=== PATIENT | female | born 1995 | race Caucasian/White ===

== ENCOUNTER 2017-10-13 14:54 | Emergency (ER) | payer MEDICAID ==
[2017-10-13 15:07] VITALS: BMI 36.2
[2017-10-13 16:18] LABS: SQUAMOUS EPITHIAL 3 /hpf (0-5); URINE BILIRUBIN NEGATIVE (NEGATIVE); URINE BLOOD NEGATIVE (NEGATIVE); URINE CLARITY Clear (Clear); URINE COLOR Yellow (YELLOW); URINE GLUCOSE (UA) NORMAL (Normal); URINE LEUKOCYTE ESTERASE NEG Leu/uL (Negative); URINE PROTEIN NEGATIVE (NEGATIVE); URINE UROBILINOGEN NORMAL mg/dL (0.2-1.0)
[2017-10-13] MEDS ORDERED: Dextrose 5%/Lactated Ringer's 1,000 ML IV SCH (16:30)
[2017-10-13] MEDS ORDERED: Dextrose 5%/0.9% NS 1,000 ML IV ONE (16:37)
[2017-10-13] MEDS ORDERED: Dextrose 5%/Lactated Ringer's 1,000 ML IV ONE (16:45)
[2017-10-13 21:44] VITALS: BP 114/64; PULSE 125; RESP 18; TEMP 99; O2SAT 99
== END 2017-10-13 17:43 | disposition home or self-care (01) ==
LOC: C.EROB 14:54
DX: O26.892 Other specified pregnancy related conditions, second trimester (principal); M54.5 Low back pain; Z3A.21 21 weeks gestation of pregnancy
CPT/HCPCS: 81001; 87804; 99282; J7042; J7120

== ENCOUNTER 2018-02-23 06:30 | Inpatient (IN) | payer MEDICAID, OTHER ==
[2018-02-23] MEDS ORDERED: Lactated Ringer's 1,000 ML IV ONE (08:09)
[2018-02-23] MEDS ORDERED: Penicillin G 5 Million Unit Vial IVPB ONE ×2 (08:09→08:59)
[2018-02-23] MEDS ORDERED: Lactated Ringer's 1,000 ML IV SCH (08:15)
[2018-02-23] MEDS ORDERED: Oxytocin 30 UNIT 30 UNITS/500 ML BAG IV ONE ×2 (08:37→09:08)
[2018-02-23 08:48] LABS: EOS # 0.1 K/uL (0.0-0.7); LYMPH # 2.2 K/uL (1.0-4.3); MEAN PLATELET VOLUME 10.1 fL (7.2-11.7); MONO # 0.9 K/uL (0.0-0.8)
[2018-02-23 08:57] LABS: BASO % 0.4 % (0.0-2.0); LYMPH % 21.4 % (20.0-40.0); MEAN CORPUSCULAR HEMOGLOBIN 29.2 pg (27.0-31.0); MEAN CORPUSCULAR HGB CONC 33.9 g/dL (33.0-37.0); MONO % 8.5 % (0.0-10.0); NEUT % 68.7 % (50.0-75.0); RBC 3.95 Mil/uL (3.80-5.20); RED CELL DISTRIBUTION WIDTH 14.4 % (11.5-14.5); WHITE BLOOD COUNT 10.2 K/uL (4.8-10.8)
[2018-02-23 09:00] LABS: HEMOGLOBIN 11.5 g/dL (11.0-16.0); MEAN CELL VOLUME 86.1 fL (81.0-99.0)
[2018-02-23 09:16] LABS: SQUAMOUS EPITHIAL 7 /hpf (0-5); URINE BACTERIA OCC (<OCC); URINE BILIRUBIN NEGATIVE (NEGATIVE); URINE BLOOD NEGATIVE (NEGATIVE); URINE CLARITY Hazy (Clear); URINE COLOR Yellow (YELLOW); URINE GLUCOSE (UA) NORMAL (Normal); URINE LEUKOCYTE ESTERASE 3+ Leu/uL (Negative); URINE PROTEIN NEGATIVE (NEGATIVE); URINE UROBILINOGEN NORMAL mg/dL (0.2-1.0)
--- NOTE | 2018-02-23 09:44 | OBHP ---
Datetime: 02/23/2018 08:54 IP Adm Impression: Postterm, intrauterine IP Admit Plan: Admit to unit; Initiate labor protocol; Initiate labor induction protocol Admit Comment, IP Provider: cc: "induction of labor" HPI: Patient is a 22 y/o who is currently at a gestational age of 40 weeks and 5 days. She is p resenting for scheduled induction of labor. Patient's LMP was 04/21/17. Patient endorses moveme nt and contractions every 10 minutes. She denies vaginal bleed and LOF. Patient found out about her p regnancy at 6-7 weeks gestation and has been taking vitamins since then. OBHx: previously had 1 miscarriage in 2015. Previous termination via D_C at 2013. As per patient, last ultrasound was on 01/27. During this , patient is +GBS. GynHx: menarche at age 11. Periods occur every 28 days and last 3 days in duration. Previous histo ry of Chlamydia. Denies HIV, hepatitis, gonorrhea, syphilis, herpes infections. No history of fibroid s or cysts. Last pap smear was at 32 weeks gestation and was within normal limits. PMHx: Chlamydia (previously + but as of 01/30/18, she is negative for Chlamydia) PSHx: D_C (2013) SocialHx: denies alcohol use during ; previous social drinker. No tobacco use. No recreat ional drug use. Monogamous. FamilyHx: mother is 39 y/o with no health issues. Father is 41 y/o with no health issues. Meds: vitamins only. Allergies: NKDA. ROS: Negative for headache, lightheadedness, dizziness, chest pain, shortness of breath, n/v/d, lower e xtremity pain and swelling. Assessment: Patient is a 22 y/o who is currently at a gestational age of 40 weeks and 5 days. She is p resenting for scheduled induction of labor. Uneventful Course except for + Chlamydia and treated with RAYA Negative Plan: 1. Admit 2. NPO 3. NST Reactive/Continuous EFM 4. Anesthesia cosulted for possible epidural 5. Penicillin G for +GBS 6. Anticipate 7. Blood Type A+ Amilcar Pal, DO PGY1 H_P for Dr. Kenyon Pelvic Type - PN: Adequate Extremities - PN: Normal Abdomen - PN: Normal Back - PN: Normal Breast - PN: Normal Lungs - PN: Normal Heart - PN: Normal Thyroid - PN: Normal Neurologic - PN: Normal HEENT - PN: Normal General - PN: Normal FHR - Baseline A Provider: 140 Contraction Comments Provider: Yes Comments, ACOG Physical Exam: General: NAD. AAOx3. Cardio: RRR, normal s1/s2. No murmurs. Lungs: CTA bilaterally. No w/r/r Abdomen: Gravid abdomen. Fundus is high, several fingerbreadths above the umbilicus. Non-tender ab domen. No rebound tenderness or guarding. : 2 cm dilation. 80% effacement. -2 station. Ext: no pitting edema. No calf tenderness or lower extremity swelling. Negative Paola sign. Gestation - Est Wks by US: 40.5 IP Hx Assessment: The History has been Reviewed and is Current EGA AdmitDate IP: 40.5 Vital Signs Provider: Reviewed; Within Normal Limits IP Chief Complaint: Scheduled induction of labor NICHD Variability Prov Fetus A: Moderate 6-25bpm NICHD Accel Fetus A IP Provider: Minimal FHR Category Provider Fetus A: Category I NICHD Decel Fetus A IP Provider: Variable Dilatation, Provider: 2 Effacement, Provider: 80 Station, Provider: -2 Genitourinary Exam: Normal DTRs - PN: Normal Datetime: 10/13/2017 15:40 IP Chief Complaint Other: Low back pain; lower abdominal pain; sore throat Vital Signs Provider Details: Maternal tachycardia noted
--- NOTE | 2018-02-23 10:02 | OBADHP ---
Datetime: 02/23/2018 08:54 Admit Comment, IP Provider: cc: "induction of labor" HPI: Patient is a 22 y/o who is currently at a gestational age of 40 weeks and 5 days. She is p resenting for scheduled induction of labor. Patient's LMP was 04/21/17. Patient endorses moveme nt and contractions every 10 minutes. She denies vaginal bleed and LOF. Patient found out about her p regnancy at 6-7 weeks gestation and has been taking vitamins since then. OBHx: previously had 1 miscarriage in 2015. Previous termination via D_C at 2013. As per patient, last ultrasound was on 01/27. During this , patient is +GBS. GynHx: menarche at age 11. Periods occur every 28 days and last 3 days in duration. Previous histo ry of Chlamydia. Denies HIV, hepatitis, gonorrhea, syphilis, herpes infections. No history of fibroid s or cysts. Last pap smear was at 32 weeks gestation and was within normal limits. PMHx: Chlamydia (previously + but as of 01/30/18, she is negative for Chlamydia) PSHx: D_C (2013) SocialHx: denies alcohol use during ; previous social drinker. No tobacco use. No recreat ional drug use. Monogamous. FamilyHx: mother is 39 y/o with no health issues. Father is 41 y/o with no health issues. Meds: vitamins only. Allergies: NKDA. ROS: Negative for headache, lightheadedness, dizziness, chest pain, shortness of breath, n/v/d, lower e xtremity pain and swelling. Assessment: Patient is a 22 y/o who is currently at a gestational age of 40 weeks and 5 days. She is p resenting for scheduled induction of labor. Uneventful Course except for + Chlamydia and treated with RAYA Negative Plan: 1. Admit 2. NPO 3. NST Reactive/Continuous EFM 4. Anesthesia cosulted for possible epidural 5. Penicillin G for +GBS 6. Anticipate 7. Blood Type A+ Amilcar Pal, DO PGY1 H_P for Dr. Kenyon Pelvic Type - PN: Adequate Extremities - PN: Normal Abdomen - PN: Normal Back - PN: Normal Breast - PN: Normal Lungs - PN: Normal Heart - PN: Normal Thyroid - PN: Normal Neurologic - PN: Normal HEENT - PN: Normal General - PN: Normal FHR - Baseline A Provider: 140 Contraction Comments Provider: Yes Comments, ACOG Physical Exam: General: NAD. AAOx3. Cardio: RRR, normal s1/s2. No murmurs. Lungs: CTA bilaterally. No w/r/r Abdomen: Gravid abdomen. Fundus is high, several fingerbreadths above the umbilicus. Non-tender ab domen. No rebound tenderness or guarding. : 2 cm dilation. 80% effacement. -2 station. Ext: no pitting edema. No calf tenderness or lower extremity swelling. Negative Paola sign. Gestation - Est Wks by US: 40.5 IP Hx Assessment: The History has been Reviewed and is Current Vital Signs Provider: Reviewed; Within Normal Limits IP Chief Complaint: Scheduled induction of labor NICHD Variability Prov Fetus A: Moderate 6-25bpm NICHD Accel Fetus A IP Provider: Minimal FHR Category Provider Fetus A: Category I NICHD Decel Fetus A IP Provider: Variable Dilatation, Provider: 2 Effacement, Provider: 80 Station, Provider: -2 Genitourinary Exam: Normal DTRs - PN: Normal EGA AdmitDate IP: 40.5 IP Adm Impression: Postterm, intrauterine ; Intact Membranes IP Admit Plan: Admit to unit; Initiate labor protocol; Initiate labor induction protocol Datetime: 10/13/2017 15:40 IP Chief Complaint Other: Low back pain; lower abdominal pain; sore throat Vital Signs Provider Details: Maternal tachycardia noted
[2018-02-23] MEDS ORDERED: Bupivacaine HCl/FentaNYL Cit 100 ML EPI ONE (10:03)
[2018-02-23 10:28] LABS: ALB/GLOB RATIO 1.1 (1.0-2.1); ALBUMIN 3.4 g/dL (3.5-5.0); ALT/SGPT 22 U/L (9-52); AST/SGOT 18 U/L (14-36); BLOOD UREA NITROGEN 9 mg/dL (7-17); GFR NON-AFRICAN AMERICAN > 60
--- NOTE | 2018-02-23 11:59 | OBPN ---
Datetime: 02/23/2018 11:39 IP Progress Impression: Normal progression of labor IP Informed Consent Obtain: Vaginal Delivery IP Procedures: Artificial ROM; Intrauterine Pressure Catheter; Scalp Electrode; Sterile Vag Ex am IP Progress Plan: Continue present management; Induction; Antibiotic therapy Membranes, Provider: Ruptured Amniotic Fluid Color, Provider: Bloody Contraction Comments Provider: Irregular FHR - Baseline A Provider: 150 Gestation - Est Wks by US: 40.5 Presentation-Admit: Vertex IP Progress Note Comment: IOL in progress Pitocin at 4 mU/min and contractions irregular and mild SVE-4/90/-1 AROM with scanty bloody fluid IUPC and ISL place with ease UC's Q 3 minutes and up to 30-[address] and working well Anticipate a vaginal delivery NICHD Accel Fetus A IP Provider: 10X10 NICHD Variability Prov Fetus A: Moderate 6-25bpm Dilatation, Provider: 3-4 Effacement, Provider: 90 Station, Provider: -1 NICHD Decel Fetus A IP Provider: None; Variable Datetime: 02/23/2018 08:54 Pool Provider: Negative Vital Signs Provider: Reviewed; Within Normal Limits FHR Category Provider Fetus A: Category I Datetime: 10/13/2017 15:40 Vital Signs Provider Details: Maternal tachycardia noted
--- NOTE | 2018-02-23 13:53 | OBPN ---
Datetime: 02/23/2018 13:29 IP Progress Impression: Normal progression of labor IP Informed Consent Obtain: Vaginal Delivery IP Procedures: Sterile Vag Exam IP Progress Plan: Continue present management; Induction; Antibiotic therapy Membranes, Provider: Ruptured Contraction Comments Provider: 2-3 FHR - Baseline A Provider: 140 Gestation - Est Wks by US: 40.5 Presentation-Admit: Vertex IP Progress Note Comment: Pt feeling pressure and + earlies noted on strip UC's q 2-3 mins and up to 50 mmHg SVE 8/100/-1 and + caput Pitocin at 8 mU/min Epidural working well Hope for a vaginal delivery NICHD Accel Fetus A IP Provider: 10X10 NICHD Variability Prov Fetus A: Moderate 6-25bpm Dilatation, Provider: 8 Effacement, Provider: 100 Station, Provider: -1 NICHD Decel Fetus A IP Provider: Early
[2018-02-23] MEDS ORDERED: Benzocaine/Menthol 20%-0.5% Topical Spray (60 ml) TOP PRN (14:47)
[2018-02-23] MEDS ORDERED: Oxycodone/Acetaminophen 5/325 mg Tab PO PRN ×2 (14:47)
--- NOTE | 2018-02-23 16:04 | OBDS ---
DELIVERY PERSONNEL Delivery Doctor: Monse Kenyon MD Vp Transportation: Cristian Petersen RN Anesthesiologist: Hrasha MATERNAL INFORMATION Delivery Anesthesia: Epidural Medications in Delivery: pitocin 20 Estimated Blood Loss (ml): 200 Placenta Cultured: No Maternal Complications: None Provider Comments: of a viable female from EMILIANO position and over an intact perineum. Apg ars 9_9. BW 7lbs, 15 oz EBL 200 mls and Pitocin infusion given Epidural worked wellLacerations repaired without complications Pt and both tolerated the procedure well and remained in S_S condition LABOR SUMMARY EDC: 02/18/2018 00:00 No. Babies in Womb: 1 LABOR INFORMATION Reason for Induction: Postterm Onset of Labor: 02/23/2018 10:00 Complete Dilatation: 02/23/2018 14:22 Group B Beta Strep: Positive Steroids Given: None Reason Steroids Not Administered: Not Applicable MEMBRANES Membranes Rupture Method: Artificial Rupture of Membranes: 02/23/2018 11:05 Length of Rupture (hrs): 3.42 Amniotic Fluid Color: Clear Amniotic Fluid Amount: Moderate Amniotic Fluid Odor: Normal STAGES OF LABOR Stage 1 hrs: 4 Stage 1 min: 22 Stage 2 hrs: 0 Stage 2 min: 8 Stage 3 hrs: 0 Stage 3 min: 8 Total Time in Labor hrs: 4 Total Time in Labor min: 38 VAGINAL DELIVERY Episiotomy: None Laceration Extension: N/A Laceration Type: Periurethral Laceration Repair: Yes Laceration Repair Note: 3-0 chromic suture utilized to repair bilateral periurethrals and done witho ut complications Initial Vag Sponge Count: 10 Final Vag Sponge Count: 10 Initial Vag Sharps Count: 2 Final Vag Sharps Count: 2 Sponge Count Correct: Yes Sharps Count Correct: Yes BABY A INFORMATION Delivery Date/Time: 02/23/2018 14:30 Method of Delivery: Vaginal Born in Route : No : N/A Forceps: N/A Vacuum Extraction: N/A SHOULDER DYSTOCIA BABY A Infant Delivery Date/Time: 02/23/2018 14:30 PRESENTATION/POSITION BABY A Presentation: Cephalic Cephalic Presentation: Vertex Breech Presentation: N/A PLACENTA INFORMATION BABY A Placenta Delivery Time : 02/23/2018 14:38 Placenta Method of Delivery: Spontaneous Placenta Status: Delivered SCORES BABY A Heart Rate 1 min: >100 bpm Resp Effort 1 min: Good Cry Reflex Irritability 1 min: Cough or Sneeze or Pulls Away Muscle Tone 1 min: Active Motion Color 1 min: Body [place], Extremities Blue Resuscitation Effort 1 min: Tactile Stimulation SCORE 1 MIN: 9 Heart Rate 5 min: >100 bpm Resp Effort 5 min: Good Cry Reflex Irritability 5 min: Cough or Sneeze or Pulls Away Muscle Tone 5 min: Active Motion Color 5 min: Body [place], Extremities Blue SCORE 5 MIN: 9 INFORMATION BABY A Gestational Age at Delivery: 40.0 Gestational Status: Term Infant Outcome : Liveborn Condition : Stable Sex: Male IDENTIFICATION/MEDS BABY A ID Band Number: [id number] ID Band Location: Left Leg; Left Arm Sensor Applied: Yes Sensor Number: [id number] Sensor Location : Cord Clamp WEIGHT/LENGTH BABY A Birthweight (gms): 3610 Weight (lb): 7 Weight (oz): 15 Infant Length Inches: 19.50 Length cms: 49.5 CORD INFORMATION BABY A No. Cord Vessels: 3 Nuchal Cord : Around Neck x1, Loose Cord Blood Taken: Yes Infant Suction: Mouth; Nose ASSESSMENT BABY A Complications: None Physical Findings at Delivery: Within Normal Limits Infant Respirations: Appears Normal Tab Cutter/ALS Called : No Care By: dr bello Transferred To: Remains with Mother
[2018-02-24 07:18] LABS: BASO % 0.2 % (0.0-2.0); EOS # 0.2 K/uL (0.0-0.7); EOS % 1.4 % (0.0-4.0); HEMOGLOBIN 11.1 g/dL (11.0-16.0); LYMPH # 3.2 K/uL (1.0-4.3); LYMPH % 26.9 % (20.0-40.0); MEAN CELL VOLUME 86.2 fL (81.0-99.0); MEAN CORPUSCULAR HGB CONC 33.6 g/dL (33.0-37.0); MEAN PLATELET VOLUME 9.5 fL (7.2-11.7); MONO % 8.1 % (0.0-10.0); NEUT # 7.6 K/uL (1.8-7.0); NEUT % 63.4 % (50.0-75.0); RBC 3.82 Mil/uL (3.80-5.20); RED CELL DISTRIBUTION WIDTH 14.6 % (11.5-14.5)
--- NOTE | 2018-02-24 17:32 | OBPPN ---
Datetime: 02/24/2018 10:41 PP Pain Prov: Within normal limits PP Nausea Prov: Denies PP Flatus Prov: Yes PP BM Prov: No PP Breasts Prov: Not Done PP Heart Prov: Normal PP Lungs Prov: Normal PP Abdomen/Uterus Prov: Normal PP Lochia Prov: Normal PP Vulva/Perineum Prov: Normal PP CVA Tenderness Prov: Normal PP Extremities Prov: Normal PP C/S Incision Prov: Not Applicable PP Progress Prov: Normal PP Comments Phys Exam Prov: Abdomen soft, nontender. Bowel sounds present. Uterine fundus firm and at the level of umbilicus. PP Impression Prov: Normal progression PP Plan Prov: Continue present management PP Progress Note Prov: Patient seen and examined at bedside. She states she does not have pain curre ntly, and has not used Motrin or Percocet. She has been tolerating her diet without abdominal pain, n ausea or vomiting. She states she has been passing flatus, but has not had a bowel movement. Patient states she has been walking around the room. She states her lochia is minimal. She denies fevers, chi lls, chest pain, shortness of breath, abdominal pain, dysuria, leg pain or swelling. A/P: 22 year old at 40.5 weeks s/p with PPD 1 1. Vital signs stable 2. AM labs, white count 12.0, Hb 11.1, Hct 32.9 (yesterday H/H 11.5/34.0) 3. Encourage breast feeding, water intake, ambulation IP PP Procedures: None Vital Signs Provider PP: Reviewed; Within Normal Limits
[2018-02-25 08:45] VITALS: BP 121/78; PULSE 90; RESP 18; TEMP 97.8; O2SAT 100
--- NOTE | 2018-02-25 12:10 | OBDCSUM ---
Datetime: 02/25/2018 12:08 Discharged to, Provider: Home Follow up at, Provider: clinic Disch Instr Activity: Normal activity Disch Instr Diet: Regular Discharge Instructions, Provider: Routine instructions given Discharge Diagnosis, Provider: Term Delivered Discharge Time: 02/25/2018 12:08 Follow up in weeks, Provider: 6 weeks Disch Referrals: None Contraception discussed, Prov: Yes Contraception after Delivery: Undecided
--- NOTE | 2018-02-25 12:10 | OBPPN ---
Datetime: 02/25/2018 08:16 PP Pain Prov: Within normal limits PP Nausea Prov: Denies PP Flatus Prov: Yes PP BM Prov: No PP Breasts Prov: Not Done PP Heart Prov: Normal PP Lungs Prov: Normal PP Abdomen/Uterus Prov: Normal PP Lochia Prov: Normal PP Vulva/Perineum Prov: Normal PP CVA Tenderness Prov: Not Done PP Extremities Prov: Not Done PP Progress Prov: Normal PP Comments Phys Exam Prov: Abdomen soft, nontender. Bowel sounds present. Fundus at the level of um bilicus. Umbilicus firm. Vaginal laceration healing well, no evidence of infection at the site. PP Impression Prov: Normal progression PP Plan Prov: Discharge PP Progress Note Prov: PPD2 Patient seen and examined at bedside. Patient states her pain is currently well controlled. She myers s not had to use Motrin or Percocet. She is eating well, without nausea, vomiting, abdominal pain. Solis daniel is currently breast feeding, however states she would like to start bottle feeding since she myers s to return to work soon. She describes minimal lochia. She has not had a bowel movement, but has had flatus. Patient denies calf pain, chest pain, shortness of breath, fevers, chills, dysuria. She has thoughts about plans for contraception which she will discuss with her OB at her next appointment. A/P22 year old female at 40.5 weeks s/p with PPD2 1. Vitals stable 2. H/H yesterday 11.1/32.9 3. Encourage breast feeding, ambulation, switch to bottle feeding as necessary Case discussed with Dr. Renetta Nunez, PGY1 I have examined the patient and agree with documentation as above. Dr. Renetta Mackenzie, in house attending IP PP Procedures: None Vital Signs Provider PP: Reviewed; Within Normal Limits
[2018-02-25] MEDS ORDERED: Influenza Vaccine 60 MCG/0.5 ML SYR (3 yr & up) IM ONE (14:54)
== END 2018-02-25 15:20 | disposition home or self-care (01) | DRG 560 ==
LOC: C.EROB 06:30 → C.4D 07:56 → C.4M 16:10
PROVIDERS: ADMIT Obstetrics & Gynecology; ATTEND Obstetrics & Gynecology
PROC: 10E0XZZ Delivery of Products of Conception, External Approach (ICD-10-PCS; principal; 2018-02-23)
PROC: 3E0P7VZ Introduction of Hormone into Female Reproductive, Via Natural or Artificial Opening (ICD-10-PCS; 2018-02-23)
PROC: 10907ZC Drainage of Amniotic Fluid, Therapeutic from Products of Conception, Via Natural or Artificial Opening (ICD-10-PCS; 2018-02-23)
PROC: 0UQMXZZ Repair Vulva, External Approach (ICD-10-PCS; 2018-02-23)
DX: O48.0 Post-term pregnancy (principal); J02.9 Acute pharyngitis, unspecified; O69.81X0 Labor and delivery complicated by cord around neck, without compression, not applicable or unspecified; O71.82 Other specified trauma to perineum and vulva; O99.52 Diseases of the respiratory system complicating childbirth; Z3A.40 40 weeks gestation of pregnancy; Z37.0 Single live birth